=== PATIENT | female | born 1980 | race Caucasian/White ===

== ENCOUNTER 2018-08-19 12:54 | Observation (INO) ==
[2018-08-19] MEDS ORDERED: NS 1,000 ML ONE ×2 (13:08→13:09)
[2018-08-19] MEDS ORDERED: MORPHINE IV ONE ×2 (13:09→14:13)
[2018-08-19] MEDS ORDERED: NS 1,000 ML IV ONE ×2 (13:09→16:42)
[2018-08-19] MEDS ORDERED: ZOFRAN IV ONE (13:09)
[2018-08-19 13:55] LABS: BASO# 0.01 X1000 (0.0-0.2); BASO% 0.1 % (0.0-0.8); EOS# 0.01 X1000 (0.0-0.7); EOS% 0.1 % (0.0-10.0); HEMATOCRIT 36.6 % (37.0-47.0); HEMOGLOBIN 12.5 g/dL (12.0-16.0); IMM GRAN# 0.05 X1000 (0.0-0.04); IMM GRAN% 0.3 % (0.0-0.5); INR 0.93; LYMPH# 1.25 X1000 (1.2-3.4); LYMPH% 6.4 % (20.5-51.1); MCH 32.7 PG (27-31); MCHC 34.2 g/dL (33-37); MCV 95.8 FL (81-99); MONO# 0.51 X1000 (0.11-0.59); MONO% 2.6 % (1.7-9.3); MPV 8.6 FL (7.4-10.4); NEUT# 17.83 X1000 (1.4-6.5); NEUT% 90.5 % (42.2-75.2); PLT 408 X1000 (130-400); PROTIME 13.2 Seconds (11.0-16.0); RBC 3.82 XMIL (4.2-5.4); RDW 12.8 % (11.5-14.5); WBC 19.66 X1000 (4.8-10.8)
[2018-08-19 13:56] LABS: PTT 23.1 Seconds (22.3-41.8)
[2018-08-19] MEDS ORDERED: ZOSYN 3.375 GM in NS 50 ML IV ONE (14:10)
[2018-08-19] MEDS ORDERED: VANCOMYCIN 1 GM/NS 1 GM/250 ML IVPB IV ONE ×2 (14:10→19:00)
[2018-08-19] MEDS ORDERED: NS 2,700 ML IV ONE (14:13)
[2018-08-19 14:25] LABS: AGAP 16; ALBUMIN 3.5 g/dL (3.5-5.0); ALKALINE PHOSPHATASE 83 U/L (32-104); BUN 11 mg/dL (8-22); CALCIUM 8.7 mg/dL (8.8-10.2); CHLORIDE 100 mmol/L (98-107); COSMO 271; CREATININE 0.7 mg/dL (0.5-0.9); ESTIMATED GFR > 60; GLUCOSE 128 mg/dL (70-104); GOT 15 U/L (10-30); GPT 11 U/L (10-36); POTASSIUM 4.1 mmol/L (3.5-5.1); SODIUM 135 mmol/L (136-145); TCO2 19 mmol/L (25-35); TOTAL BILIRUBIN 0.53 mg/dL (0.20-1.00)
[2018-08-19 15:14] LABS: MAGNESIUM 1.5 mg/dL (1.5-2.7)
[2018-08-19] MEDS ORDERED: NS 1,700 ML IV ONE (15:29)
--- NOTE | 2018-08-19 15:34 | Diag Imaging Result Doc PS360 ---
EXAM: CHEST-1 VIEW HISTORY: Sepsis Protocol TECHNIQUE: Portable chest COMPARISON: None. FINDINGS: The lungs are well expanded. The heart is not enlarged. The vessels are not distended. There are no infiltrates. No effusion identified. IMPRESSION: No pneumonia Electronically signed by Mio Rodriguez 08/19/2018 3:31 PM
--- NOTE | 2018-08-19 15:37 | Diag Imaging Result Doc PS360 ---
EXAM: US TRANSVAGINAL OB HISTORY: abdominal pain s/p estopic TECHNIQUE: Emergent transvaginal pelvic ultrasound COMPARISON: 08/14/2018 FINDINGS: The urinary bladder is distended. Patient unable to empty the urinary bladder compromise and transvaginal imaging. Normal uterus. No endometrial thickening. No intrauterine gestational sac. There is a small amount of free fluid. Multiseptated complex cyst in the left ovary measuring 1.8 x 3.5 cm. The right ovary is not identified. IMPRESSION: No intrauterine . Unable to exclude an ectopic . Electronically signed by Mio Rodriguez 08/19/2018 3:35 PM
[2018-08-19 16:03] LABS: URINE SOURCE CATH
[2018-08-19 16:13] LABS: BILIRUBIN URINE NEGATIVE (NEGATIVE); BLOOD URINE TRACE (NEGATIVE); COLOR ORANGE; GLUCOSE URINE NEGATIVE (NEGATIVE); KETONE URINE 20 mg/dL (NEGATIVE); LEUKOCYTES URINE TRACE (NEGATIVE); NITRITE URINE POSITIVE (NEGATIVE); PH URINE 5.5; PROTEIN URINE 30 mg/dL (NEGATIVE); SP GRAVITY URINE 1.026; TURBIDITY URINE HAZY (CLEAR); UROBILINOGEN URINE NORMAL (NORMAL)
[2018-08-19 16:15] LABS: UR EPITHELIAL CELLS >10 /HPF (<10); URINE BACTERIA 4+ /HPF; URINE RBC <10 /HPF (<10); URINE WBC <10 /HPF (<10)
[2018-08-19 16:26] LABS: URINE CASTS NONE SEEN; URINE CRYSTALS NONE SEEN; URINE SMALL ROUND CELLS NONE SEEN; URINE YEAST NONE SEEN
[2018-08-19] MEDS ORDERED: LEVAQUIN 500 MG/D5W 500 MG/100 ML IVPB IV SCH (16:30)
--- NOTE | 2018-08-19 16:32 | PROVIDER DOCUMENTATION ---
This chart was entered by Ernestina Levine Scribe, acting as scribe for Hesham Crump MD. HPI-Female /OB/Breast - General Chief Complaint: Abdominal Pain Stated Complaint: POST OP ECTOPIC Time Seen by Provider: 08/19/18 13:02 Source: reports: patient, old records Allergies/Adverse Reactions: Patient Allergies Allergy/AdvReac Type Severity Reaction Status Date / Time azithromycin AdvReac Unknown Verified 08/14/18 06:40 - History of Present Illness-Female /OB Nature of Presenting Problem: 37 y/o female presents to ED with severe abdominal pain onset just prior to arrival. Pt was diagnosed with ectopic on Monday and has had methotrexate infusions Monday and Monday. Pt denies vaginal bleeding. Pt is pramod rt and oriented. Does patient report she is ?: Yes (ectopic diagnosed Monday) Location of complaint: reports: other (L epigastric) Radiation: reports: none Quality of Pain: reports: sharp Severity in ED: reports: severe Onset/Duration: reports: just prior to arrival Timing: reports: still present Context/Activities at Onset: reports: none Vaginal Symptoms: reports: no symptoms Vaginal Bleeding Amount: None Urinary Symptoms: reports: no symptoms Related Symptoms: reports: abdominal pain Leakage of Fluid: none Modifying Factors: worse with: palpation Associated Symptoms: reports: other (abdominal pain) Similar Symptoms Previously?: No Recently seen or treated by another doctor?: Yes Review of Systems - Adult - REVIEW OF SYSTEMS - ADULT Constitutional: denies: chills, fever Eyes: reports: no symptoms reported Ears, Nose, Mouth & Throat: reports: no symptoms reported Cardiovascular: denies: chest pain, palpitations Respiratory: denies: cough, shortness of breath Gastrointestinal: reports: abdominal pain. denies: diarrhea, nausea, vomiting Genitourinary: reports: no symptoms reported Musculoskeletal: denies: back pain, joint pain Integumentary: reports: no symptoms reported Neurological: denies: dizziness/vertigo, seizure Psychiatric: reports: no symptoms reported Endocrine: reports: no symptoms reported Hematologic/Lymphatic: reports: no symptoms reported Allergic/Immunologic: reports: no symptoms reported All Other Systems: Reviewed and Negative Past History - Adult - PAST MEDICAL HISTORY-ADULT Review of Records: reports: Old Records Reviewed, Nursing Assessment Review, Medications Reviewed Major Childhood Illnesses: reports: denies history - PRIOR SURGERIES/PROCEDURES Surgical/Procedure History: reports: none - IMMUNIZATION STATUS Childhood Immunizations: See Nurse Assessment Flu Vaccine: See Nurse Assessment - FAMILY HISTORY Family History: reviewed, not pertinent - SOCIAL HISTORY Smoking: non-smoker Substance Use: none/never Alcohol Use Frequency: never Living Situation: family Physical Exam-General - PHYSICAL EXAM-ADULT Initial Vital Signs Reviewed: Yes - CONSTITUTIONAL General Appearance: alert, severe distress - EYES Eyes: PERRL/EOMI, pink conjunctivae - HEAD, EARS, NOSE, MOUTH & THROAT HENMT: normocephalic/atraumatic, moist mucous membranes, normal ENT inspection - NECK Neck: non-tender, full range of motion - RESPIRATORY Respiratory: chest non-tender, lungs clear, normal breath sounds - CARDIOVASCULAR Cardiovascular: normal peripheral pulses, regular rate, rhythm - GASTROINTESTINAL (ABDOMEN) Abdominal Exam: normal bowel sounds, soft, guarding, tenderness (LLQ/epigastric) . negative: rigid, rebound - MUSCULOSKELETAL Back Exam: normal inspection, no CVA tenderness Extremity: normal range of motion, non-tender, normal gait - SKIN Integumentary: normal color, warm/dry - NEUROLOGIC Neurologic: grossly normal - PSYCHIATRIC Psych/Mental Status: normal mood/affect, normal thought content, normal thought process Progress - PLAN OF CARE/RESULTS Progress/Plan/Lab Results: Vital Signs - 8 hr 08/19/18 13:15 08/19/18 13:23 08/19/18 13:29 Temperature 97.8 F Pulse Rate 72 78 73 Respiratory Rate 22 19 21 Blood Pressure 96/44 119/69 82/55 O2 Sat by Pulse Oximetry 98 99 100 08/19/18 13:32 08/19/18 13:47 08/19/18 15:10 Temperature Pulse Rate 71 75 81 Respiratory Rate 14 16 20 Blood Pressure 116/64 130/73 O2 Sat by Pulse Oximetry 99 98 96 08/19/18 15:17 Temperature Pulse Rate 78 Respiratory Rate 21 Blood Pressure 127/76 O2 Sat by Pulse Oximetry 99 Laboratory Results - last 24 hr 08/19/18 08/19/18 08/19/18 13:24 13:24 13:24 WBC 19.66 H RBC 3.82 L Hgb 12.5 Hct 36.6 L MCV 95.8 MCH 32.7 H MCHC 34.2 RDW Std Deviation 12.8 Plt Count 408 H MPV 8.6 Immature Gran % (Auto) 0.3 Neut % (Auto) 90.5 H Lymph % (Auto) 6.4 L [place] % (Auto) 2.6 Eos % (Auto) 0.1 Baso % (Auto) 0.1 Immature Gran # (Auto) 0.05 H Neut # (Auto) 17.83 H Lymph # (Auto) 1.25 [place] # (Auto) 0.51 Eos # (Auto) 0.01 Baso # (Auto) 0.01 PT 13.2 INR 0.93 PTT (Actin FS) 23.1 Sodium 135 L Potassium 4.1 Chloride 100 Carbon Dioxide 19 L Anion Gap 16 BUN 11 Creatinine 0.7 Estimated GFR/1.73 m2 > 60 BUN/Creatinine Ratio 16 Glucose 128 H Calculated Osmolality 271 Calcium 8.7 L Magnesium Total Bilirubin 0.53 AST 15 ALT 11 Alkaline Phosphatase 83 Creatine Kinase Troponin T Total Protein 7.0 Albumin 3.5 Globulin 3.5 Albumin/Globulin Ratio 1.0 Plasma Lactate Serum , Qual Ser , Semi-Qnt Urine Source Urine Color Urine Turbidity Urine pH Ur Specific [place] Urine Protein Ur Glucose (Stick) Ur Ketones (Stick) Urine Blood Urine Nitrite Urine Bilirubin Urobilinogen Dipstick Urine Leukocytes Urine WBC (Auto) Urine RBC (Auto) U Epithel Cells (Auto) Urine Bacteria (Auto) Urine Crystals Small Round Cells Urine Casts Urine Yeast-like Cells 08/19/18 08/19/18 08/19/18 13:24 13:24 13:24 WBC RBC Hgb Hct MCV MCH MCHC RDW Std Deviation Plt Count MPV Immature Gran % (Auto) Neut % (Auto) Lymph % (Auto) [place] % (Auto) Eos % (Auto) Baso % (Auto) Immature Gran # (Auto) Neut # (Auto) Lymph # (Auto) [place] # (Auto) Eos # (Auto) Baso # (Auto) PT INR PTT (Actin FS) Sodium Potassium Chloride Carbon Dioxide Anion Gap BUN Creatinine Estimated GFR/1.73 m2 BUN/Creatinine Ratio Glucose Calculated Osmolality Calcium Magnesium 1.5 Total Bilirubin AST ALT Alkaline Phosphatase Creatine Kinase 44 Troponin T Total Protein Albumin Globulin Albumin/Globulin Ratio Plasma Lactate Serum , Qual POSITIVE Ser , Semi-Qnt 6734.0 Urine Source Urine Color Urine Turbidity Urine pH Ur Specific [place] Urine Protein Ur Glucose (Stick) Ur Ketones (Stick) Urine Blood Urine Nitrite Urine Bilirubin Urobilinogen Dipstick Urine Leukocytes Urine WBC (Auto) Urine RBC (Auto) U Epithel Cells (Auto) Urine Bacteria (Auto) Urine Crystals Small Round Cells Urine Casts Urine Yeast-like Cells 08/19/18 08/19/18 08/19/18 13:24 15:03 15:55 WBC RBC Hgb Hct MCV MCH MCHC RDW Std Deviation Plt Count MPV Immature Gran % (Auto) Neut % (Auto) Lymph % (Auto) [place] % (Auto) Eos % (Auto) Baso % (Auto) Immature Gran # (Auto) Neut # (Auto) Lymph # (Auto) [place] # (Auto) Eos # (Auto) Baso # (Auto) PT INR PTT (Actin FS) Sodium Potassium Chloride Carbon Dioxide Anion Gap BUN Creatinine Estimated GFR/1.73 m2 BUN/Creatinine Ratio Glucose Calculated Osmolality Calcium Magnesium Total Bilirubin AST ALT Alkaline Phosphatase Creatine Kinase Troponin T < 0.010 Total Protein Albumin Globulin Albumin/Globulin Ratio Plasma Lactate 1.3 Serum , Qual Ser , Semi-Qnt Urine Source CATH Urine Color ORANGE Urine Turbidity HAZY Urine pH 5.5 Ur Specific [place] 1.026 Urine Protein 30 A Ur Glucose (Stick) NEGATIVE Ur Ketones (Stick) 20 A Urine Blood TRACE A Urine Nitrite POSITIVE A Urine Bilirubin NEGATIVE Urobilinogen Dipstick NORMAL Urine Leukocytes TRACE A Urine WBC (Auto) <10 Urine RBC (Auto) <10 U Epithel Cells (Auto) >10 A Urine Bacteria (Auto) 4+ Urine Crystals NONE SEEN Small Round Cells NONE SEEN Urine Casts NONE SEEN Urine Yeast-like Cells NONE SEEN Orders Category Date Time Status Cardiac Monitoring DIRECTED Care 08/19/18 14:48 Active Notify MD of + Sepsis Screen NOW Care 08/19/18 14:48 Active Notify Physician As Ordered Care 08/19/18 14:48 Active CHEST-1 VIEW [RAD] Stat Exams 08/19/18 14:48 Completed US TRANSVAGINAL OB [US] Stat Exams 08/19/18 13:08 Completed BLOOD CULTURE [BLDCUL] Stat Lab 08/19/18 13:23 Results CBC WITH ELECTRONIC DIFF [HEME] Stat Lab 08/19/18 13:24 Completed CK PROFILE [SP CHEM] Stat Lab 08/19/18 13:24 Completed COMPREHENSIVE METABOLIC PANEL [CHEM] Stat Lab 08/19/18 13:24 Completed LACTATE, PLASMA [CHEM] Stat Lab 08/19/18 15:03 Completed MAGNESIUM [CHEM] Stat Lab 08/19/18 13:24 Completed TEST-SERUM [PREG] Stat Lab 08/19/18 13:24 Completed PROTIME WITH INR [COAG] Stat Lab 08/19/18 13:24 Completed PTT [COAG] Stat Lab 08/19/18 13:24 Completed QUANT TEST Stat Lab 08/19/18 13:24 Completed TROPONIN T Stat Lab 08/19/18 13:24 Completed UA [URINALYSIS W/POSS RFLX CULT] [URINALYSIS] Stat Lab 08/19/18 15:55 Results URINE MANUAL MICROSCOPIC [URINALYSIS] Stat Lab 08/19/18 15:55 Results 0.9% Sodium Chloride Inj [Ns] 1,000 ml Med 08/19/18 13:08 Discontinued .ROUTE As directed 0.9% Sodium Chloride Inj [Ns] 1,000 ml Med 08/19/18 13:09 Discontinued .ROUTE As directed 0.9% Sodium Chloride Inj [Ns] 1,000 ml Med 08/19/18 13:09 Discontinued IV 999 mls/hr 0.9% Sodium Chloride Inj [Ns] 1,700 ml Med 08/19/18 15:29 Discontinued IV 999 mls/hr 0.9% Sodium Chloride Inj [Ns] 2,700 ml Med 08/19/18 14:13 Discontinued IV 999 mls/hr Levofloxacin 500 mg/D5w [Levaquin 500 mg/D5w] Med 08/19/18 16:30 Discontinued 500 mg in 100 ml IV Q24H Morphine Med 08/19/18 13:09 Discontinued 4 mg IV NOW ONE Morphine Med 08/19/18 14:13 Discontinued 4 mg IV NOW ONE Ondansetron [Zofran] Med 08/19/18 13:09 Discontinued 4 mg IV NOW ONE Piperacillin/Tazobactam [Zosyn] 3.375 gm Med 08/19/18 14:10 Discontinued 0.9% Sodium Chloride Inj [Ns] 50 ml IV NOW Vancomycin 1 gm/Ns Med 08/19/18 14:10 Discontinued 1 gm in 250 ml IV NOW Oxygen Device Stat Oth 08/19/18 14:48 Active A/P: LLQ pain, ectopic , BHCG trending down. Elevated WBS with UTI, gave vanc and zosyn. will transfer to [facility] for admit and obs. Result Diagrams: 08/19/18 13:24 08/19/18 13:24 - XRAY 1 XRAY Study: Chest Impression: Normal ( FINDINGS: The lungs are well expanded. The heart is not enlarged. The vessels are not distended. There are no infiltrates. No effusion identified. IMPRESSION: No pneumonia Electronically signed by Mio Rodriguez 08/19/2018 3:31 PM) - ULTRASOUND (By Radiology) 1 US Study: Pelvic, Transvaginal Impression: Abnormal (FINDINGS: The urinary bladder is distended. Patient unable to empty the urinary bladder compromise and transvaginal imaging. Normal uterus. No endometrial thickening. No intrauterine gestational sac. There is a small amount of free fluid. Multiseptated complex cyst in the left ovary measuring 1.8 x 3.5 cm. The right ovary is not identified. IMPRESSION: No intrauterine . Unable to exclude an ectopic . Electronically signed by Mio Rodriguez 08/19/2018 3:35 PM) - CONSULTS/PCP/HOSPITALIST Notification #1 *Consult/PCP/Hospitalist*: Dr. Matti Solorzano Discussed: 13:11 Reason/Comments: Possible ruptured ectopic Consult Disposition: other (Dr. Chino requests OB be consulted.) #2 Consult: Dr. Alexa Solorzano Discussed: 13:12 Reason/Comments: Possible ruptured ectopic Consult Disposition: other (Dr. Liu requests transvaginal US and call back with results.) Departure - Departure Date of Disposition Decision: 08/19/18 Time of Disposition Decision: 16:29 DIAGNOSIS: UTI (urinary tract infection), Leucocytosis Disposition: [place] [id number] Certified Medical Emergency: Emergent Condition: Stable Additional Freetext Instructions: We have examined and treated you today on an emergency basis only. This was not a substitute for, or an effort to provide, complete medical care. In most cases, you must let your doctor check you again. Tell your doctor about any new or lasting problems. We cannot recognize and treat all injuries or illnesses in one Emergency Department visit. If you had special tests, such as X-rays or CT scans, will be reviewed by radiologist and will call you if there are any new suggestions Follow up with primary care provider in 1 to 2 days if no improvement. If you do not have a primary care provider, you need to choose one as soon as possible. Take medicines as prescribed. Monitor for any side effects or adverse events from medications. If any side effect, adverse event or rash develops, or if you suspect any other adverse reaction to the medication, then discontinue the medication immediately and contact clinic /PCP or go to the nearest ER. Narcotic meds / sedative meds instruction - patent advised not to drive, operate any machinery or go into water after taking meds as it may impair mental a bility to react to the situation in an appropriate manner. Continue other current medicines. Follow up with PCP within 24-48 hours, or sooner if symptoms worsen or fail to improve. Patient / guardian verbalizes understanding of treatment plan, medication, and side effects and agrees with treatment plan. Patient leaves ER in stable condition and ambulatory state. Return to ER as needed. Discharge instructions reviewed verbally and given to patient in written form. Follow up with primary care provider. Referrals and Follow-Ups: Shadi Willard [Primary Care Provider] - - Critical Care Note This patient required my direct & personal management of CC.: No Attestation - Physician/ ELY Attestation Patient care was provided by Advanced Practice Provider:: No The physician spent face to face time with patient:: Yes Advanced Practice Provider documentation review:: Supervising physician onsite and consulted in the evaluation and care of this patient. The physician did have a face to face encounter with the patient. This chart was documented by the indicated scribe, (Ernestina Levine, De[place]) and accurately reflects the services I performed and decisions made by me, Hesham Crump MD, as attested by the provider's signature.
[2018-08-19] MEDS ORDERED: MORPHINE IV PRN (16:42)
[2018-08-19] MEDS ORDERED: ZOFRAN IV PRN (18:44)
--- NOTE | 2018-08-19 19:35 | HISTORY AND PHYSICAL ---
HISTORY OF PRESENT ILLNESS: The patient is being admitted as a 37-year-old G 4, P 2-0-1-2, who has a recent history of ectopic . The patient reports that she came to the hospital this morning with complaints of pain and lightheadedness. She reports her pain was 8/10. She has since been given morphine that has helped with the pain. The patient reports that she is aware that she had an ectopic . She had been seen by her physician, and she got a dose of methotrexate on Monday. And she thinks her HCG was more than 6000 at that time. On Monday, she had a repeat HCG and was given a 2nd dose of methotrexate. She was fine on Monday, and then today she started having excruciating pain and went to the hospital. The patient reports once she had the morphine, the pain subsided, but has not gone away. She has no bleeding and no other complaints. OB history significant for 4 pregnancies, 2 live births via normal spontaneous delivery, one miscarriage, and 2 live children at home. GYNECOLOGICAL HISTORY: Significant for bilateral tubal ligation back in December 2015. FAMILY HISTORY: Noncontributory. Patient has a history of hypertension, and she is on lisinopril 10 mg daily. SURGICAL HISTORY: Bilateral tubal ligation and cholecystectomy. The cholecystectomy was done in 1998. SOCIAL HISTORY: Patient reports social drinking. She smokes cigarettes 1 pack a day. ALLERGIES: Patient is allergic to erythromycin. PHYSICAL EXAMINATION: VITAL SIGNS: Temperature of 99.7 degrees, pulse of 83, respiratory rate of 18, blood pressure 121/66. GENERAL: Patient is alert, awake, and oriented x3 in mild distress. This is after she has been given pain medicine. HEENT: Patient is normocephalic, atraumatic. Thyroid normal. The patient does have some tenderness on palpation of her right shoulder. CARDIOVASCULAR: S1, S2 normal. LUNGS: The patient has some expiratory wheezing, possibly from smoking. ABDOMEN: Patient is tender on both lower quadrants of the abdomen. EXTREMITIES: No edema noted. DIAGNOSTIC DATA: On ultrasound review patient had an ultrasound today that showed no intrauterine . There is a multiseptated complex cyst in the left ovary measuring 1.8 x 3.5 cm, and the right ovary is not visualized. The patient's labs today. The patient had a serum test of 6734. Two days ago on Monday her HCG was 7974. On Monday, her HCG was 6248. Other labs that apartment. White count was 19.66 today. Her hemoglobin was 12.5. Hematocrit was 36.6. Platelet count was 408,000. The patient's labs that were drawn on Monday the . Her WBC is 11.97, hemoglobin was 13.6, hematocrit was 39.1, and a platelet count was 395,000. ASSESSMENT AND PLAN: Ectopic , status post 2 doses of methotrexate. The patient has had an increase and a subsequent decrease of beta HCG since then. We will repeat her beta HCG in the morning. Abdominal pain. Patient is on morphine with Zofran for prophylaxis against nausea. The patient is on a liquid diet. Discussed with the patient the normal procedure that occurs when methotrexate is used for an ectopic . She understood that her HCG could increase before it decreased. She has gotten the 2 doses, and her HCG is decreasing. We will repeat HCG in the morning. We will restart patient on her lisinopril 10 mg daily if her blood pressure increases. The patient is a smoker. We will start her on a nicotine patch 21 mg daily. We will discuss further with the patient depending on the results of the labs that will be drawn tomorrow. The patient understands that surgical intervention will be for emergencies or if the methotrexate is not working appropriately. cc: MD Kimani Zayas MD
[2018-08-19] MEDS: NICODERM PATCH TD SCH (20:38)
[2018-08-19] MEDS: MORPHINE IV PRN (22:36)
[2018-08-20] MEDS: MORPHINE IV PRN (05:26)
[2018-08-20] MEDS ORDERED: PRINIVIL PO SCH (09:00)
[2018-08-20] MEDS: MOTRIN PO SCH ×3 (09:08→16:36)
[2018-08-20] MEDS: NICODERM PATCH TD SCH (09:08)
--- NOTE | 2018-08-20 10:52 | OB/GYN PROGRESS NOTE ---
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 Note: Vital Signs - 24 hr 08/19/18 13:15 08/19/18 13:23 08/19/18 13:29 Temperature 97.8 F Pulse Rate 72 78 73 Respiratory Rate 22 19 21 Blood Pressure 96/44 119/69 82/55 O2 Sat by Pulse Oximetry 98 99 100 08/19/18 13:32 08/19/18 13:47 08/19/18 15:10 Temperature Pulse Rate 71 75 81 Respiratory Rate 14 16 20 Blood Pressure 116/64 130/73 O2 Sat by Pulse Oximetry 99 98 96 08/19/18 15:17 08/19/18 15:32 08/19/18 15:48 Temperature Pulse Rate 78 76 92 H Respiratory Rate 21 20 17 Blood Pressure 127/76 124/65 108/62 O2 Sat by Pulse Oximetry 99 95 97 08/19/18 16:02 08/19/18 16:17 08/19/18 16:32 Temperature Pulse Rate 79 80 82 Respiratory Rate 20 20 20 Blood Pressure 119/66 119/56 134/70 O2 Sat by Pulse Oximetry 95 97 99 08/19/18 16:47 08/19/18 17:02 08/19/18 17:05 Temperature 98.5 F Pulse Rate 80 74 92 H Respiratory Rate 19 18 25 H Blood Pressure 115/61 122/65 124/81 O2 Sat by Pulse Oximetry 95 97 97 08/19/18 18:21 08/19/18 21:25 08/19/18 21:30 Temperature 99.7 F H 98.6 F Pulse Rate 83 93 H Respiratory Rate 18 16 Blood Pressure 121/66 118/66 O2 Sat by Pulse Oximetry 99 95 95 08/20/18 01:16 08/20/18 07:26 08/20/18 08:22 Temperature 98.5 F 98.5 F Pulse Rate 92 H 76 Respiratory Rate 16 16 Blood Pressure 121/66 131/70 O2 Sat by Pulse Oximetry 98 97 98 Laboratory Results - last 24 hr 08/19/18 08/19/18 08/19/18 13:24 13:24 13:24 WBC 19.66 H RBC 3.82 L Hgb 12.5 Hct 36.6 L MCV 95.8 MCH 32.7 H MCHC 34.2 RDW Std Deviation 12.8 Plt Count 408 H MPV 8.6 Immature Gran % (Auto) 0.3 Neut % (Auto) 90.5 H Lymph % (Auto) 6.4 L [place] % (Auto) 2.6 Eos % (Auto) 0.1 Baso % (Auto) 0.1 Immature Gran # (Auto) 0.05 H Neut # (Auto) 17.83 H Lymph # (Auto) 1.25 [place] # (Auto) 0.51 Eos # (Auto) 0.01 Baso # (Auto) 0.01 PT 13.2 INR 0.93 PTT (Actin FS) 23.1 Sodium 135 L Potassium 4.1 Chloride 100 Carbon Dioxide 19 L Anion Gap 16 BUN 11 Creatinine 0.7 Estimated GFR/1.73 m2 > 60 BUN/Creatinine Ratio 16 Glucose 128 H Calculated Osmolality 271 Calcium 8.7 L Magnesium Total Bilirubin 0.53 AST 15 ALT 11 Alkaline Phosphatase 83 Creatine Kinase Troponin T Total Protein 7.0 Albumin 3.5 Globulin 3.5 Albumin/Globulin Ratio 1.0 Plasma Lactate Serum , Qual Ser , Semi-Qnt Urine Source Urine Color Urine Turbidity Urine pH Ur Specific [place] Urine Protein Ur Glucose (Stick) Ur Ketones (Stick) Urine Blood Urine Nitrite Urine Bilirubin Urobilinogen Dipstick Urine Leukocytes Urine WBC (Auto) Urine RBC (Auto) U Epithel Cells (Auto) Urine Bacteria (Auto) Urine Crystals Small Round Cells Urine Casts Urine Yeast-like Cells 08/19/18 08/19/18 08/19/18 13:24 13:24 13:24 WBC RBC Hgb Hct MCV MCH MCHC RDW Std Deviation Plt Count MPV Immature Gran % (Auto) Neut % (Auto) Lymph % (Auto) [place] % (Auto) Eos % (Auto) Baso % (Auto) Immature Gran # (Auto) Neut # (Auto) Lymph # (Auto) [place] # (Auto) Eos # (Auto) Baso # (Auto) PT INR PTT (Actin FS) Sodium Potassium Chloride Carbon Dioxide Anion Gap BUN Creatinine Estimated GFR/1.73 m2 BUN/Creatinine Ratio Glucose Calculated Osmolality Calcium Magnesium 1.5 Total Bilirubin AST ALT Alkaline Phosphatase Creatine Kinase 44 Troponin T Total Protein Albumin Globulin Albumin/Globulin Ratio Plasma Lactate Serum , Qual POSITIVE Ser , Semi-Qnt 6734.0 Urine Source Urine Color Urine Turbidity Urine pH Ur Specific [place] Urine Protein Ur Glucose (Stick) Ur Ketones (Stick) Urine Blood Urine Nitrite Urine Bilirubin Urobilinogen Dipstick Urine Leukocytes Urine WBC (Auto) Urine RBC (Auto) U Epithel Cells (Auto) Urine Bacteria (Auto) Urine Crystals Small Round Cells Urine Casts Urine Yeast-like Cells 08/19/18 08/19/18 08/19/18 13:24 15:03 15:55 WBC RBC Hgb Hct MCV MCH MCHC RDW Std Deviation Plt Count MPV Immature Gran % (Auto) Neut % (Auto) Lymph % (Auto) [place] % (Auto) Eos % (Auto) Baso % (Auto) Immature Gran # (Auto) Neut # (Auto) Lymph # (Auto) [place] # (Auto) Eos # (Auto) Baso # (Auto) PT INR PTT (Actin FS) Sodium Potassium Chloride Carbon Dioxide Anion Gap BUN Creatinine Estimated GFR/1.73 m2 BUN/Creatinine Ratio Glucose Calculated Osmolality Calcium Magnesium Total Bilirubin AST ALT Alkaline Phosphatase Creatine Kinase Troponin T < 0.010 Total Protein Albumin Globulin Albumin/Globulin Ratio Plasma Lactate 1.3 Serum , Qual Ser , Semi-Qnt Urine Source CATH Urine Color ORANGE Urine Turbidity HAZY Urine pH 5.5 Ur Specific [place] 1.026 Urine Protein 30 A Ur Glucose (Stick) NEGATIVE Ur Ketones (Stick) 20 A Urine Blood TRACE A Urine Nitrite POSITIVE A Urine Bilirubin NEGATIVE Urobilinogen Dipstick NORMAL Urine Leukocytes TRACE A Urine WBC (Auto) <10 Urine RBC (Auto) <10 U Epithel Cells (Auto) >10 A Urine Bacteria (Auto) 4+ Urine Crystals NONE SEEN Small Round Cells NONE SEEN Urine Casts NONE SEEN Urine Yeast-like Cells NONE SEEN 08/19/18 08/19/18 08/20/18 18:00 20:40 07:00 WBC RBC Hgb Hct MCV MCH MCHC RDW Std Deviation Plt Count MPV Immature Gran % (Auto) Neut % (Auto) Lymph % (Auto) [place] % (Auto) Eos % (Auto) Baso % (Auto) Immature Gran # (Auto) Neut # (Auto) Lymph # (Auto) [place] # (Auto) Eos # (Auto) Baso # (Auto) PT INR PTT (Actin FS) Sodium Potassium Chloride Carbon Dioxide Anion Gap BUN Creatinine Estimated GFR/1.73 m2 BUN/Creatinine Ratio Glucose Calculated Osmolality Calcium Magnesium Total Bilirubin AST ALT Alkaline Phosphatase Creatine Kinase Troponin T Total Protein Albumin Globulin Albumin/Globulin Ratio Plasma Lactate 1.3 1.2 Serum , Qual Ser , Semi-Qnt 6182.0 Urine Source Urine Color Urine Turbidity Urine pH Ur Specific [place] Urine Protein Ur Glucose (Stick) Ur Ketones (Stick) Urine Blood Urine Nitrite Urine Bilirubin Urobilinogen Dipstick Urine Leukocytes Urine WBC (Auto) Urine RBC (Auto) U Epithel Cells (Auto) Urine Bacteria (Auto) Urine Crystals Small Round Cells Urine Casts Urine Yeast-like Cells Patient reports she is still having cramping mostly on the left side now. Shoulder pain has resolved. She reports that her pain is controlled with motrin, she has not had any morphine since last evening. She is ambulating. AFVSS General: AAOx3 in mild distress HEENT; NCAT CV: S1 S2 normal Lungs: expiratory wheezes, otherwise clear Abdomen. tender on the left side on deep palpation Ext: no edema A/P UTI - on vancomycin- awaiting the sensitivity from urine culture Ectopic - HCG decreasing appropriately, will continue pain medication and repeat the Beta HCG in the morning if patient is still in hospital. she is scheduled to see Dr. Culp tomorrow for follow up. Francisco Javier
[2018-08-20 14:30] VITALS: BP 127/63
--- NOTE | 2018-08-20 17:52 | DISCHARGE SUMMARY ---
ADMISSION DATE: 08/19/2018 DISCHARGE DATE: ADMITTING DIAGNOSIS: Ectopic , urinary tract infection, abdominal pain. HOSPITAL COURSE: The patient was admitted as a transport from [facility]. The patient was given morphine over at [facility] secondary to excruciating abdominal pain. She arrived at [facility] and was admitted. The patient was able to tolerate Motrin for the rest of the night and did very well. On review of her labs, showed more than a 15% decrease in her beta HCGs since being given her methotrexate for therapy of the ectopic . Urine culture grew out gram-negative rods. After discussion with Dr. Culp, it is determined that patient may be able to go home and follow up with her in 1 week. ASSESSMENT AND PLAN: 1. Ectopic . The patient has had 2 doses of methotrexate. Her HCGs are dropping appropriately. 2. Urinary tract infection. Patient was given vancomycin. We will send her home with some Macrobid for 7 days. 3. Abdominal pain, resolved. The patient has taken Motrin and she has a couple Percocets to go home with just in case the pain returns. cc: MD Kimani Zayas MD
== END 2018-08-20 18:45 | disposition home or self-care (01) ==
LOC: SUPCPDRO → P.MEDSURG 12:54 → ED 12:54 → OBSVTOIN 17:42 → INTOOBSV 17:42
PROVIDERS: ADMIT Obstetrics & Gynecology; ATTEND Obstetrics & Gynecology
CPT/HCPCS: 71010; 71045; 76817; 80053; 81001; 82550; 83605; 83735; 84484; 84702; 84703; 85025; 85610; 85730; 87040; 87077; 87088; 87186; 94761; 94799; 96365; 96375; 96376; 99285; A9270; J2270; J2405; J2543; J3370; J7030